=== PATIENT | female | born 1995 | race Caucasian/White ===

== ENCOUNTER → 2020-04-05 | Outpatient (CLI) | payer OTHER | LOC: M LABSMTC 13:30 | PROVIDERS: ATTEND Orthopaedic Surgery | DX: Z11.59 Encounter for screening for other viral diseases (principal) | CPT/HCPCS: C9803; U0003 ==

== ENCOUNTER → 2020-04-10 | Outpatient (REF) | payer OTHER | LOC: M LAB REF 12:36 | PROVIDERS: ATTEND Orthopaedic Surgery | DX: M67.432 Ganglion, left wrist (principal) ==

== ENCOUNTER 2020-12-27 13:51 | Emergency (ER) | payer OTHER ==
[~2020-12-27] VITALS: Ht 167.6 cm; Wt 95.9 kg
[2020-12-27] MEDS ORDERED: PROP20TA72 (14:03)
[2020-12-27] MEDS ORDERED: TRI-TAB11 (14:03)
[2020-12-27] MEDS ORDERED: LORA-674 (14:03)
[2020-12-27] MEDS ORDERED: BUPR150T5 (14:03)
[2020-12-27] MEDS ORDERED: TOPI50TA9 (14:03)
[2020-12-27] MEDS ORDERED: D3-5CAP (14:03)
[2020-12-27] MEDS ORDERED: ARNU1INH (14:03)
[2020-12-27] MEDS ORDERED: AMIT25TA17 (14:03)
[2020-12-27] MEDS ORDERED: ALBU8.5H (14:03)
--- NOTE | 2020-12-27 14:41 | REP ---
INDICATION: GONSALVES, Hx PSEUDOTUMOR. COMPARISON: None. TECHNIQUE: CT brain performed in the axial plane. Coronal reconstruction images are performed. FINDINGS: The ventricles are normal in size and position.. There is no midline shift or mass effect. Ayers-white differentiation is well maintained. There is no acute intracranial hemorrhage or extra-axial fluid collection. Bone window examination is unremarkable. The visualized mastoid air cells and paranasal sinuses are clear. IMPRESSION: Negative noncontrast CT brain. <Electronically signed by Larry Ayers > 12/27/20 [id number]
[2020-12-27] MEDS ORDERED: diphenhydrAMINE 50MG/ML VIAL (J1200) IV STA (15:07)
[2020-12-27] MEDS ORDERED: NS 1,000 ML IV ONE (15:10)
[2020-12-27] MEDS ORDERED: METOCLOPRAMIDE INJ 10MG/2ML VIAL (J2765 PER 1) IV ONE (15:10)
[2020-12-27] MEDS ORDERED: KETOROLAC 30 MG/ML 1ML VIAL IV ONE (15:10)
[2020-12-27 16:42] VITALS: BP 110/64
== END 2020-12-27 16:50 | disposition home or self-care (01) ==
LOC: M ED 13:51
DX: R51.9 Headache, unspecified (principal); F33.9 Major depressive disorder, recurrent, unspecified; F41.9 Anxiety disorder, unspecified; G93.2 Benign intracranial hypertension; Z79.899 Other long term (current) drug therapy; Z79.3 Long term (current) use of hormonal contraceptives
CPT/HCPCS: 70450; 96361; 96374; 96375; 99284; J1200; J1885; J2765

== ENCOUNTER → 2023-06-16 | Outpatient (CLI) | payer MEDICAID, SELFPAY ==
[~2023-06-16] MED LIST: ALBU8.5H; AMIT25TA19; ARNU1INH; BUPR-71; D3-5CAP; LORA-1041; PROP20TA72; TOPI-254; TRI-TAB11
== END ==
LOC: M WHC 07:14
PROVIDERS: ATTEND Physician Assistant
DX: N63.23 Unspecified lump in the left breast, lower outer quadrant (principal)

== ENCOUNTER → 2023-08-25 | Outpatient (CLI) | payer MEDICAID, OTHER ==
[~2023-08-25] MED LIST changes: +TOPI-21; -TOPI-254
[2023-08-25 16:41] LABS: HEMATOCRIT 39.1 % (36.0-47.0); HEMOGLOBIN 13.9 g/dl (12.0-15.5); MEAN CORPUSCULAR HEMOGLOBIN 31.6 pg (27.0-33.0); MEAN CORPUSCULAR HGB CONC 35.5 g/dl (32.0-36.5); MEAN CORPUSCULAR VOLUME 88.9 fl (80.0-96.0); PLATELET COUNT, AUTOMATED 333 10^3/uL (150-450); WHITE BLOOD COUNT 11.7 10^3/uL (4.0-10.0)
[2023-08-25 18:04] LABS: CHLAMYDIA DNA AMPLIFICATION NEGATIVE (NEGATIVE); GC DNA AMPLIFICATION NEGATIVE (NEGATIVE)
[2023-08-26 19:17] LABS: HIV 1&2 SCREEN NEGATIVE (NEGATIVE)
[2023-08-26 19:29] LABS: HEPATITIS C VIRUS ABY INDEX > 11.00 INDEX (<0.8)
== END ==
LOC: M LAB 15:35
PROVIDERS: ATTEND Specialist
DX: Z34.81 Encounter for supervision of other normal pregnancy, first trimester (principal)

== ENCOUNTER 2023-10-11 11:43 | Emergency (ER) | payer OTHER ==
[~2023-10-11] VITALS: Ht 167.6 cm; Wt 100.2 kg
[2023-10-11 11:43] VITALS: TEMP 97.7
[2023-10-11] MEDS ORDERED: ONDA4TAB6 PO (12:06)
[2023-10-11 12:42] LABS: BASO % 0.3 % (0.0-1.0); EOS # 0.2 10^3/uL (0.0-0.5); EOS % 1.8 % (0.0-3.0); HEMATOCRIT 38.2 % (36.0-47.0); HEMOGLOBIN 13.8 g/dl (12.0-15.5); LYMPH # 2.2 10^3/uL (1.5-5.0); LYMPH % 20.7 % (24.0-44.0); MEAN CORPUSCULAR HEMOGLOBIN 32.4 pg (27.0-33.0); MEAN CORPUSCULAR HGB CONC 36.1 g/dl (32.0-36.5); MEAN CORPUSCULAR VOLUME 89.7 fl (80.0-96.0); MONO # 0.6 10^3/uL (0.0-0.8); MONO % 5.3 % (2.0-8.0); NEUTROPHILS # 7.7 10^3/uL (1.5-8.5); NEUTROPHILS % 71.4 % (36.0-66.0); PLATELET COUNT, AUTOMATED 281 10^3/uL (150-450); RED BLOOD COUNT 4.26 10^6/uL (4.00-5.40); WHITE BLOOD COUNT 10.8 10^3/uL (4.0-10.0)
[2023-10-11 13:08] LABS: LIPASE 29 U/L (12-53)
[2023-10-11 13:09] LABS: CK-MB VALUE MASS < 1.0 NG/ML (<3.6)
[2023-10-11 13:10] LABS: ALBUMIN 3.2 G/DL (3.2-5.2); ALKALINE PHOSPHATASE 50 U/L (46-116); ALT/SGPT 12 U/L (7.0-40); AST/SGOT 22 U/L (<34); BILIRUBIN,DIRECT < 0.1 MG/DL (<0.4); BILIRUBIN,TOTAL 0.5 MG/DL (0.3-1.2); BLOOD UREA NITROGEN 5 MG/DL (9-23); CALCIUM LEVEL 8.9 MG/DL (8.5-10.1); CARBON DIOXIDE LEVEL 23 MMOL/L (20-31); CHLORIDE LEVEL 107 MMOL/L (98-107); CREATININE FOR GFR 0.49 MG/DL (0.55-1.30); GLOMERULAR FILTRATION RATE > 60.0 (>60); GLUCOSE, FASTING 85 MG/DL (60-100); POTASSIUM SERUM 4.4 MMOL/L (3.5-5.1); SODIUM LEVEL 138 MMOL/L (136-145); TOTAL PROTEIN 6.8 G/DL (5.7-8.2)
[2023-10-11 13:11] LABS: INR 0.9; PROTHROMBIN TIME 11.9 SECONDS (12.5-14.5)
[2023-10-11 13:12] LABS: PARTIAL THROMBOPLASTIN TIME 25.6 SECONDS (24.8-34.2)
[2023-10-11 13:14] LABS: FREE T4 0.99 NG/DL (0.89-1.76); THYROID STIMULATING HORMONE 1.483 uIU/ML (0.55-4.78)
[2023-10-11 13:15] LABS: CPK CREATINE PHOSPHOKINASE 50 U/L (34-145)
[2023-10-11 13:58] LABS: CK-MB VALUE MASS < 1.0 NG/ML (<3.6)
[2023-10-11 14:00] LABS: CPK CREATINE PHOSPHOKINASE 45 U/L (34-145); MB/CK RELATIVE INDEX 2.22 (< OR =4)
[2023-10-11 14:13] VITALS: O2SAT 100
[2023-10-11 14:18] VITALS: BP 120/70
== END 2023-10-11 14:42 | disposition home or self-care (01) ==
LOC: M ED 11:43
DX: O99.342 Other mental disorders complicating pregnancy, second trimester (principal); O99.322 Drug use complicating pregnancy, second trimester; Z3A.18 18 weeks gestation of pregnancy

== ENCOUNTER → 2023-10-23 | Outpatient (CLI) | payer OTHER ==
[~2023-10-23] MED LIST changes: +ONDA4TAB6 PO
== END ==
LOC: M WHC 10:19
PROVIDERS: ATTEND Advanced Practice Midwife
DX: Z34.92 Encounter for supervision of normal pregnancy, unspecified, second trimester (principal); Z3A.20 20 weeks gestation of pregnancy

== ENCOUNTER → 2023-11-24 | Outpatient (CLI) | payer OTHER ==
[2023-11-24 15:33] LABS: HEMATOCRIT 40.2 % (36.0-47.0); HEMOGLOBIN 13.7 g/dl (12.0-15.5); MEAN CORPUSCULAR HGB CONC 34.1 g/dl (32.0-36.5); MEAN CORPUSCULAR VOLUME 93.9 fl (80.0-96.0); PLATELET COUNT, AUTOMATED 330 10^3/uL (150-450); RED BLOOD COUNT 4.28 10^6/uL (4.00-5.40); WHITE BLOOD COUNT 16.7 10^3/uL (4.0-10.0)
[2023-11-24 16:56] LABS: GC DNA AMPLIFICATION NEGATIVE (NEGATIVE)
== END ==
LOC: M PLALAB 11:25
PROVIDERS: ATTEND Advanced Practice Midwife
DX: Z34.92 Encounter for supervision of normal pregnancy, unspecified, second trimester (principal)

== ENCOUNTER 2023-12-16 18:26 | Emergency (ER) | payer OTHER | END 2023-12-16 18:36 | disposition admitted as inpatient to this hospital (09) | LOC: M ED 18:26 | DX: Z53.21 Procedure and treatment not carried out due to patient leaving prior to being seen by health care provider (principal) ==

== ENCOUNTER 2023-12-16 18:33 | Outpatient (CLI) | payer OTHER ==
[~2023-12-16] VITALS: Ht 167.6 cm; Wt 104.9 kg
[2023-12-16 18:59] VITALS: BP 125/77
== END 2023-12-16 20:45 | disposition home or self-care (01) ==
LOC: M LDO 18:33
PROVIDERS: ATTEND Obstetrics & Gynecology
DX: O34.219 Maternal care for unspecified type scar from previous cesarean delivery (principal); O99.342 Other mental disorders complicating pregnancy, second trimester; F41.8 Other specified anxiety disorders; Y04.0XXA Assault by unarmed brawl or fight, initial encounter; Y92.9 Unspecified place or not applicable; Y93.9 Activity, unspecified; Y99.9 Unspecified external cause status
CPT/HCPCS: 59025; G0463

== ENCOUNTER 2024-02-08 11:52 | Emergency (ER) | payer OTHER ==
[~2024-02-08] VITALS: Ht 167.6 cm; Wt 107.0 kg
[~2024-02-08 11:52] MED LIST changes: +ONDA-282 PO; -ONDA4TAB6 PO
[2024-02-08 12:02] VITALS: BP 151/88; TEMP 97.2; O2SAT 100
[2024-02-08] MEDS ORDERED: PRENTAB9 PO (13:10)
[2024-02-08] MEDS ORDERED: ACET325C5 PO (13:10)
[2024-02-10] MEDS ORDERED: CYCL5TAB PO (11:26)
== END 2024-02-08 14:09 | disposition admitted as inpatient to this hospital (09) ==
LOC: M ED 11:52
DX: Z53.21 Procedure and treatment not carried out due to patient leaving prior to being seen by health care provider (principal)

== ENCOUNTER 2024-02-08 12:41 | Outpatient (CLI) | payer OTHER ==
[~2024-02-08] VITALS: Ht 167.6 cm; Wt 107.5 kg
[2024-02-08 12:57] VITALS: BP 111/61; O2SAT 98
[2024-02-08] MEDS ORDERED: PRENTAB9 PO (13:10)
[2024-02-08] MEDS ORDERED: ACET325C5 PO (13:10)
[2024-02-08] MEDS ORDERED: HOME MED LIST COMPLETE! XX SCH (13:15)
[2024-02-08 13:41] LABS: APPEARANCE, URINE HAZY (CLEAR); BACTERIA, URINE AUTO 1+ (NEGATIVE); BILIRUBIN, URINE AUTO NEGATIVE (NEGATIVE); BLOOD, URINE BLOOD NEGATIVE (NEGATIVE); COLOR, URINE YELLOW (YELLOW); GLUCOSE, URINE (UA) AUTO NEGATIVE (NEGATIVE); KETONE, URINE AUTO NEGATIVE (NEGATIVE); LEUKOCYTE ESTERASE, URINE AUTO NEGATIVE (NEGATIVE); MUCUS, URINE SMALL (NEGATIVE); NITRITE, URINE AUTO NEGATIVE (NEGATIVE); PROTEIN, URINE AUTO NEGATIVE (NEGATIVE); RBC, URINE AUTO 0 /HPF (0-3); SQUAMOUS EPITHELIAL CELL UR AU 3 /HPF (0-6); UROBILINOGEN, URINE AUTO 0.2 mg/dL (0.0-2.0); WBC, URINE AUTO 0 /HPF (0-3)
[2024-02-08 14:08] LABS: HEMATOCRIT 36.7 % (36.0-47.0); HEMOGLOBIN 12.9 g/dl (12.0-15.5); MEAN CORPUSCULAR HEMOGLOBIN 32.4 pg (27.0-33.0); MEAN CORPUSCULAR HGB CONC 35.1 g/dl (32.0-36.5); MEAN CORPUSCULAR VOLUME 92.2 fl (80.0-96.0); PLATELET COUNT, AUTOMATED 312 10^3/uL (150-450); RED BLOOD COUNT 3.98 10^6/uL (4.00-5.40); WHITE BLOOD COUNT 13.1 10^3/uL (4.0-10.0)
[2024-02-08 14:33] LABS: LIPASE 37 U/L (12-53)
[2024-02-08 14:35] LABS: AMYLASE 23 U/L (30-118); LDH LACTATE DEHYDROGENASE 163 U/L (120-246)
[2024-02-08 14:36] LABS: ALT/SGPT 11 U/L (7.0-40); AST/SGOT < 8 U/L (<34); BILIRUBIN,TOTAL 0.3 MG/DL (0.3-1.2); CREATININE FOR GFR 0.39 MG/DL (0.55-1.30); GLOMERULAR FILTRATION RATE > 60.0 (>60)
[2024-02-08] MEDS: ACETAMINOPHEN 500 MG TAB PO ONE (15:06)
[2024-02-10] MEDS ORDERED: CYCL5TAB PO (11:26)
== END 2024-02-08 15:18 | disposition home or self-care (01) ==
LOC: M LDO 12:41
PROVIDERS: ATTEND Advanced Practice Midwife
DX: O26.893 Other specified pregnancy related conditions, third trimester (principal); O34.219 Maternal care for unspecified type scar from previous cesarean delivery; O99.513 Diseases of the respiratory system complicating pregnancy, third trimester; R07.82 Intercostal pain; J45.909 Unspecified asthma, uncomplicated; Z3A.35 35 weeks gestation of pregnancy
CPT/HCPCS: 36415; 59025; 81001; 82150; 82247; 83615; 83690; 84450; 84460; 84550; 85027; 87086; G0463

== ENCOUNTER → 2024-02-10 | Outpatient (REF) | payer OTHER ==
[~2024-02-10] MED LIST changes: +ACET325C5 PO; +CYCL5TAB PO; +PRENTAB9 PO
== END ==
LOC: M PLALAB 10:07
PROVIDERS: ATTEND Obstetrics & Gynecology
DX: Z36.85 Encounter for antenatal screening for Streptococcus B (principal); Z3A.35 35 weeks gestation of pregnancy

== ENCOUNTER 2024-02-24 11:29 | Emergency (ER) | payer OTHER ==
[~2024-02-24] VITALS: Ht 167.6 cm; Wt 109.1 kg
[2024-02-24 11:29] VITALS: BP 129/84; TEMP 97.8; O2SAT 99
[2024-02-24 12:42] LABS: BASO % 0.2 % (0.0-1.0); EOS % 0.3 % (0.0-3.0); HEMATOCRIT 38.1 % (36.0-47.0); HEMOGLOBIN 13.3 g/dl (12.0-15.5); LYMPH # 2.2 10^3/uL (1.5-5.0); LYMPH % 19.1 % (24.0-44.0); MEAN CORPUSCULAR HEMOGLOBIN 31.9 pg (27.0-33.0); MEAN CORPUSCULAR HGB CONC 34.9 g/dl (32.0-36.5); MEAN CORPUSCULAR VOLUME 91.4 fl (80.0-96.0); MONO # 0.5 10^3/uL (0.0-0.8); MONO % 4.6 % (2.0-8.0); NEUTROPHILS # 8.7 10^3/uL (1.5-8.5); NEUTROPHILS % 75.4 % (36.0-66.0); PLATELET COUNT, AUTOMATED 297 10^3/uL (150-450); RED BLOOD COUNT 4.17 10^6/uL (4.00-5.40); WHITE BLOOD COUNT 11.5 10^3/uL (4.0-10.0)
[2024-02-24] MEDS: NS 1,000 ML IV ONE (13:36)
[2024-02-24] MEDS: PROMETHAZINE 25MG/ML 1ML VIAL IV ONE (13:36)
[2024-02-24] MEDS ORDERED: PROM12.54 PR (14:19)
[2024-02-24 15:01] LABS: ALBUMIN 2.4 G/DL (3.2-5.2); ALKALINE PHOSPHATASE 114 U/L (46-116); ALT/SGPT 15 U/L (7.0-40); AST/SGOT 18 U/L (<34); BILIRUBIN,DIRECT < 0.1 MG/DL (<0.4); BILIRUBIN,TOTAL 0.4 MG/DL (0.3-1.2); TOTAL PROTEIN 5.9 G/DL (5.7-8.2)
== END 2024-02-24 14:23 | disposition left against medical advice (07) ==
LOC: M ED 11:29
DX: R11.2 Nausea with vomiting, unspecified (principal); Z53.9 Procedure and treatment not carried out, unspecified reason; Z3A.38 38 weeks gestation of pregnancy; Z88.8 Allergy status to other drugs, medicaments and biological substances; Z91.030 Bee allergy status
CPT/HCPCS: 80047; 80076; 85025; 96361; 96374; 99281; J2550

== ENCOUNTER → 2024-05-12 | Outpatient (REF) | payer OTHER ==
[~2024-05-12] MED LIST changes: +PROM12.54 PR
[2024-05-16 06:02] LABS: BVAB 2 NEGATIVE (NEGATIVE); CANDIDA ALBICANS NAA NOT DETECTED (NOT DETECTED); CANDIDA GLABRATA NAA NOT DETECTED (NOT DETECTED); TRICH VAG BY NAA NOT DETECTED (NOT DETECTED)
[2024-05-16 06:50] LABS: CHLAMYDIA TRACHOMATIS NAA NOT DETECTED (NOT DETECTED); Neisseria gonorrhoeae NAA NOT DETECTED (NOT DETECTED)
== END ==
LOC: M SFHCWAGY 17:19
PROVIDERS: ATTEND Obstetrics & Gynecology
DX: N76.0 Acute vaginitis (principal)

== ENCOUNTER → 2025-05-29 | Outpatient (REF) | payer OTHER ==
[~2025-05-29] MED LIST changes: -CYCL5TAB PO; +CYCL5TAB4 PO
[2025-05-31 14:43] LABS: HPV APTIMA Not Detected (Not Detected)
== END ==
LOC: M PLALAB 08:06
PROVIDERS: ATTEND Obstetrics & Gynecology
DX: Z12.4 Encounter for screening for malignant neoplasm of cervix (principal)